=== PATIENT | female | born 1955 | race Caucasian/White ===

== ENCOUNTER 2018-05-08 19:00 | Outpatient (CLI) | payer OTHER | END 2018-05-08 23:59 | disposition home or self-care (01) | LOC: D.MAMMO 19:00 | PROVIDERS: ATTEND Nurse Practitioner Family | DX: Z12.31 Encounter for screening mammogram for malignant neoplasm of breast (principal) ==

== ENCOUNTER 2018-07-02 07:19 | Observation (INO) | payer MEDICAID ==
[2018-07-02] MEDS ORDERED: NORVASC5 MG PO (07:25)
[2018-07-02] MEDS ORDERED: INDERAL 40 MG T40 MG PO (07:25)
[2018-07-02] MEDS ORDERED: ZANAFLEX4 MG PO ×2 (07:27→11:55)
--- NOTE | 2018-07-02 07:40 | NUR ---
URINE SPECIMEN COLLECTED AND SENT TO LAB VIA TUBE SYSTEM
[2018-07-02 07:46] LABS: HEMATOCRIT 39.4 % (36.0-48.0); HEMOGLOBIN 13.3 g/dL (12-16); IMMATURE GRANULOCYTES 0.2 % (0-5); LYMPHOCYTES 44.9 % (15-50); MCH 29.3 pg (26.0-34.0); MCHC 33.8 g/dL (31.0-37.0); MCV 86.8 fL (80.0-100.0); MEAN PLATELET VOLUME 10.8 fL (7.4-10.4); MONOCYTES 8.6 % (2-11); NEUTROPHILS 42.3 % (40-80); PLATELET COUNT 220 10x3/uL (130-400); RBC 4.54 10x6/uL (4.00-5.40); WBC 5.7 10x3/uL (4.8-10.8)
[2018-07-02 08:10] LABS: ALBUMIN 3.5 g/dL (3.4-5.0); ALKALINE PHOSPHATASE 85 U/L (46-116); ALT (SGPT) 12 U/L (10-68); BILIRUBIN - TOTAL 0.31 mg/dL (0.2-1.3); CALC OSMOLALITY 282 mosm/kg (275-300); CARBON DIOXIDE 28.3 mmol/L (21.0-32.0); CHLORIDE - SERUM 102 mmol/L (98-107); CKMB 0.4 U/L (0.0-3.6); CREATINE KINASE 40 UL (21-215); GLUCOSE 120 mg/dL (74-106); PROTEIN - SERUM 7.2 g/dL (6.4-8.2); SODIUM 141 mmol/L (136-145); UREA NITROGEN 16 mg/dL (7-18); eGFR NON AFRICAN AMERICAN 59 mL/min (90-120)
[2018-07-02 08:12] LABS: COLOR YELLOW (YELLOW)
[2018-07-02 08:13] LABS: APPEARANCE CLEAR (CLEAR); BILIRUBIN NEGATIVE (NEGATIVE); GLUCOSE NEGATIVE (NEGATIVE); KETONE NEGATIVE (NEGATIVE); NITRITE NEGATIVE (NEGATIVE); PROTEIN NEGATIVE (NEGATIVE); UROBILINOGEN NORMAL (NORMAL)
[2018-07-02 08:16] LABS: TROPONIN-I < 0.017 ng/mL (0.000-0.060)
[2018-07-02 08:18] LABS: POTASSIUM - SERUM 2.6 mmol/L (3.5-5.1)
--- NOTE | 2018-07-02 08:18 | NUR ---
CRITICAL LAB RECEIVED FROM TREY: POTASSIUM 2.6. EDP DOWNEN NOTIFIED.
--- NOTE | 2018-07-02 08:22 | NUR ---
PATIENT RETURNED FROM RADIOLOGY
[2018-07-02 08:36] LABS: MAGNESIUM - SERUM 1.6 mg/dL (1.8-2.4); THYROID STIMULATING HORMONE 4.2 uIU/mL (0.36-3.74)
[2018-07-02 08:44] VITALS: BP 128/78
--- NOTE | 2018-07-02 10:18 | NUR ---
PATIENT C/O COLDNESS IN THE ARM FROM THE FLUIDS. GIVEN A WARM PACK TO THE AREA. THE SITE IS WNL WITHOUT REDNESS OR SWELLING.
[2018-07-02 11:11] VITALS: BP 115/59
--- NOTE | 2018-07-02 11:40 | NUR ---
PT ARRIVED TO ROOM 2215 FROM ER CL IN REACH PT ORENTATED TO ROOM
[2018-07-02] MEDS ORDERED: HYDROCHLOROTHIA25 MG PO (11:53)
[2018-07-02] MEDS ORDERED: BUTALB-APAP-CA1 EACH PO (11:58)
[2018-07-02 14:44] VITALS: BP 132/78; BMI 23.2
[2018-07-02 16:37] LABS: BASOPHILS 0.7 % (0-2); EOSINOPHILS 2.2 % (0-7); HEMATOCRIT 38.1 % (36.0-48.0); HEMOGLOBIN 12.8 g/dL (12-16); IMMATURE GRANULOCYTES 0.3 % (0-5); LYMPHOCYTES 35.9 % (15-50); MCH 29.4 pg (26.0-34.0); MCHC 33.6 g/dL (31.0-37.0); MCV 87.6 fL (80.0-100.0); MEAN PLATELET VOLUME 11.1 fL (7.4-10.4); MONOCYTES 8.4 % (2-11); NEUTROPHILS 52.5 % (40-80); PLATELET COUNT 205 10x3/uL (130-400); RBC 4.35 10x6/uL (4.00-5.40); RDW 14.1 % (11.5-14.5); WBC 6.7 10x3/uL (4.8-10.8)
[2018-07-02 16:54] LABS: ALBUMIN 3.1 g/dL (3.4-5.0); ANION GAP 13.1 mmol/L (8-16); BILIRUBIN - TOTAL 0.15 mg/dL (0.2-1.3); CALCIUM 8.3 mg/dL (8.5-10.1); CARBON DIOXIDE 29.2 mmol/L (21.0-32.0); PROTEIN - SERUM 6.3 g/dL (6.4-8.2)
[2018-07-02 16:56] LABS: MAGNESIUM - SERUM 2.1 mg/dL (1.8-2.4); POTASSIUM - SERUM 3.3 mmol/L (3.5-5.1)
[2018-07-02 18:09] VITALS: BP 103/50
--- NOTE | 2018-07-02 20:00 | NUR ---
ALERT AND ORIENTIATED SITTIGN UP IN BED NO APPARENT DISTRESS DENIES DIZZINESS AT THIS TIME, SEE SHIFT ASSESSMENT, CALL LIGHT IN REACH
[2018-07-02 21:05] VITALS: BP 109/64
--- NOTE | 2018-07-02 22:30 | NUR ---
REQUESTING HOME MEDS INSTRUCTED THEY WERE NOT REORDERED TODAY AND WITH DX OF DIZZINESS WILL REVALUATE IN AM BEFORE RESTARTING
[2018-07-03 01:21] VITALS: BP 135/77
[2018-07-03 04:44] LABS: BASOPHILS 0.5 % (0-2); HEMATOCRIT 36.7 % (36.0-48.0); IMMATURE GRANULOCYTES 0.2 % (0-5); LYMPHOCYTES 42.6 % (15-50); MCH 28.9 pg (26.0-34.0); MCHC 32.7 g/dL (31.0-37.0); MCV 88.4 fL (80.0-100.0); MEAN PLATELET VOLUME 10.8 fL (7.4-10.4); MONOCYTES 9.9 % (2-11); NEUTROPHILS 44.8 % (40-80); PLATELET COUNT 215 10x3/uL (130-400); RBC 4.15 10x6/uL (4.00-5.40); RDW 14.4 % (11.5-14.5); WBC 6.1 10x3/uL (4.8-10.8)
[2018-07-03 04:56] LABS: ALBUMIN 2.8 g/dL (3.4-5.0); ANION GAP 10.3 mmol/L (8-16); BILIRUBIN - TOTAL 0.11 mg/dL (0.2-1.3); CALCIUM 8.4 mg/dL (8.5-10.1); CARBON DIOXIDE 30.3 mmol/L (21.0-32.0); CREATININE - SERUM 0.9 mg/dL (0.6-1.3); POTASSIUM - SERUM 3.6 mmol/L (3.5-5.1); PROTEIN - SERUM 5.9 g/dL (6.4-8.2)
[2018-07-03 05:49] VITALS: BP 116/75
--- NOTE | 2018-07-03 07:20 | NUR ---
PT SITTING UP IN BED, ALERT AND ORIENTED. UP AD BRET. PT ON ELECTROLYTE PROTOCOL. IV TO RIGHT HAND, SL. SITE PATENT WITHOUT REDNESS OR SWELLING. NO C/O PAIN. NO S/S OF ACUTE DISTRESS NOTED. CALL LIGHT IN REACH. PT DENIES ANYTHING FURTHER AT THIS TIME. WILL CONTINUE TO MONITOR.
[2018-07-03 08:04] VITALS: BP 116/61
[2018-07-03 13:25] VITALS: BP 125/72
[2018-07-03 16:00] VITALS: BP 114/69
[2018-07-03] MEDS ORDERED: AMITRIPTYLINE H50 MG PO (16:17)
[2018-07-03] MEDS ORDERED: TRAZODONE HCL150 MG PO (16:18)
[2018-07-03 20:11] VITALS: BP 108/65
[2018-07-04 00:20] VITALS: BP 131/57
[2018-07-04 04:55] VITALS: BP 163/77
[2018-07-04 06:31] LABS: BASOPHILS 0.6 % (0-2); EOSINOPHILS 1.6 % (0-7); HEMOGLOBIN 11.9 g/dL (12-16); IMMATURE GRANULOCYTES 0.1 % (0-5); LYMPHOCYTES 44.8 % (15-50); MCH 28.7 pg (26.0-34.0); MCHC 32.2 g/dL (31.0-37.0); MCV 89.4 fL (80.0-100.0); MEAN PLATELET VOLUME 10.8 fL (7.4-10.4); MONOCYTES 10.3 % (2-11); NEUTROPHILS 42.6 % (40-80); PLATELET COUNT 229 10x3/uL (130-400); RBC 4.14 10x6/uL (4.00-5.40); RDW 14.4 % (11.5-14.5); WBC 6.9 10x3/uL (4.8-10.8)
[2018-07-04 06:45] LABS: ALBUMIN 3.3 g/dL (3.4-5.0); ALKALINE PHOSPHATASE 73 U/L (46-116); BILIRUBIN - TOTAL 0.15 mg/dL (0.2-1.3); CALC OSMOLALITY 289 mosm/kg (275-300); CALCIUM 8.8 mg/dL (8.5-10.1); CARBON DIOXIDE 31.3 mmol/L (21.0-32.0); CHLORIDE - SERUM 107 mmol/L (98-107); CREATININE - SERUM 0.7 mg/dL (0.6-1.3); GLUCOSE 92 mg/dL (74-106); MAGNESIUM - SERUM 1.8 mg/dL (1.8-2.4); POTASSIUM - SERUM 3.6 mmol/L (3.5-5.1); PROTEIN - SERUM 6.5 g/dL (6.4-8.2); SODIUM 145 mmol/L (136-145); UREA NITROGEN 14 mg/dL (7-18); eGFR NON AFRICAN AMERICAN 89 mL/min (90-120)
[2018-07-04 06:46] LABS: ALT (SGPT) 24 U/L (10-68)
--- NOTE | 2018-07-04 07:17 | NUR ---
TALKED WITH PT FOR 20 MIN THIS SHIFT SHE TOLD THIS STAFF THAT THE DOCTER DID NOT TALKE TO HER AND THE POWER PLANT OPERATOR APPRENTICE DID NOT LISEN TO HER AND DID NOT GIVE HER THE MEDICATION THAT SHE SHOULD HAVE AND TAKES AT HOME. WANTS TO TALKE WITH SOMEONE THAT CAN HELP HER AND WILL LISTEN TO HER. EDUCATED HER THAT A NOTE WOULD BE PLACED AND PASED ON IN REPORT FOR CASE MANAGMENT TO TALK WITH HER.
[2018-07-04 09:14] VITALS: BP 156/88
[2018-07-04] MEDS ORDERED: PROTONIX40 MG PO (09:55)
[2018-07-04] MEDS ORDERED: SINGULAIR10 MG PO (09:55)
[2018-07-04 10:50] VITALS: BMI 23.2
--- NOTE | 2018-07-04 14:15 | NUR ---
IV DC WITH CATH INTACT, DC INSTUCTIONS GIVEN PT VERBALIZES UNDERSTANDING, LEAVIGN VIA WHEELCHAIR VIA HOSPITAL STAFF IN STABLE CONDITON
--- NOTE | 2018-07-04 14:16 | MORECARE ---
CASE MANAGEMENT DISCHARGE SUMMARY PATIENT: DAVID MANCILLA UNIT: [id number] ADM DATE: 07/02/18 AGE: 63 : 54 SEX: F ROOM/BED: D.2215 AUTHOR: PAYTON JUSTIN PHYSICIAN: REFERRING PHYSICIAN: GERARDO PEREZ MD DATE OF SERVICE: 07/04/18 Discharge Plan Patient Name: DAVID MANCILLA Facility: [facility]:[place] : 1955 Planned Disposition: Home or Self Care Anticipated Discharge Date: Discharge Date: Expected LOS: Initial Reviewer: [email or web address] Initial Review Date: 07/02/2018 Generated: 07/04/18 3:16 pm DCPIA - Discharge Planning Initial Assessment Updated by [email or web address]: Summer Renee on 07/04/18 2:14 pm * Is the patient Alert and Oriented? Yes * How many steps to enter\exit or inside your home? * PCP RUCHI CHANEY * [facility] * Preadmission Environment Home with Family * ADLs Independent * Equipment None * List name and contact numbers for known caregivers / representatives who currently or will assist patient after discharge: SHWETA FAUST * Verbal permission to speak to the caregivers and representatives has been obtained from the patient. N/A * Community resources currently utilized None * Additional services required to return to the preadmission environment? Yes * Can the patient safely return to the preadmission environment? Yes * Has this patient been hospitalized within the prior 30 days at any hospital? No External Providers External Provider: [facility] Next Contact Date: Service Request Date: Service Type: Resolution: Reviewer: Comments: Patient Name: DAVID MANCILLA Page 81992 at 1416 All edits/amendments must be made on the electronic document DICTATION DATE: 07/04/181415 EDGER MACHINE SETTER: MALLORY 07/04/181415 RPT#: [id number] DC DATE: STATUS: ADM IN [facility] [address] [place] [address] END OF REPORT
--- NOTE | 2018-07-04 14:27 | MORECARE ---
CASE MANAGEMENT DISCHARGE SUMMARY PATIENT: DAVID MANCILLA UNIT: [id number] ADM DATE: 07/02/18 AGE: 63 : 53 SEX: F ROOM/BED: D.2215 AUTHOR: PAYTON JUSTIN PHYSICIAN: REFERRING PHYSICIAN: GERARDO PEREZ MD DATE OF SERVICE: 07/04/18 Discharge Plan Patient Name: DVAID MANCILLA Facility: [facility]:[place] : 1955 Planned Disposition: Home or Self Care Anticipated Discharge Date: Discharge Date: Expected LOS: Initial Reviewer: [email or web address] Initial Review Date: 07/02/2018 Generated: 07/04/18 3:26 pm Comments DCP- Discharge Planning Updated by [email or web address]: Summer Renee on 07/04/18 1:[address] Patient Name: DAVID MANCILLA Admission Status: ER Accout number: [id number] Admission Date: 07-02-2018 : 1955 Admission Diagnosis: Attending: GERARDO PEREZ Current LOS: 2 Anticipated DC Date: Planned Disposition: Home or Self Care [facility] Discharge Planning Comments: CM met with patient to complete initial dc planning assessment. CM educated patient on the CM role and verbal consent given by patient to complete assessment. Patient lives at home with her special needs adult son. At discharge patient plans to return home and feels this is a safe discharge. CM discussed availability of home health, rehab services, and medical equipment. She did not want home health, she wanted op pt at [facility]. I called and sent orders and paperwork to them and they will call the patient with an appointment. I explained the follow to the patient and gave her their number. Patient denied known discharge needs at this time. CM will continue to follow and will assist as needed with dc plans/needs. Garment Turner: Summer Renee DCPIA - Discharge Planning Initial Assessment Updated by [email or web address]: Summer Renee on 07/04/18 2:14 pm * Is the patient Alert and Oriented? Yes * How many steps to enter\exit or inside your home? * PCP RUCHI CHANEY * [facility] * Preadmission Environment Home with Family * ADLs Independent * Equipment None * List name and contact numbers for known caregivers / representatives who currently or will assist patient after discharge: SHWETA FAUST * Verbal permission to speak to the caregivers and representatives has been obtained from the patient. N/A * Community resources currently utilized None * Additional services required to return to the preadmission environment? Yes * Can the patient safely return to the preadmission environment? Yes * Has this patient been hospitalized within the prior 30 days at any hospital? No Last DP export: 07/04/18 1:16 p Patient Name: DAVID MANCILLA Page 75555 at 1427 All edits/amendments must be made on the electronic document DICTATION DATE: 07/04/181425 BLOOD DONOR RECRUITER SUPERVISOR: MALLORY 07/04/181425 RPT#: [id number] DC DATE: STATUS: ADM IN [facility] [address] [place] [address] END OF REPORT
--- NOTE | 2018-07-04 20:15 | NUR ---
OT NOTE:(OBSERVATION PATIENT) PT COMPLETED BED MOB MOD I. PT COMPLETED SIT TO STAND WITH SBA. PT COMPLETED BUE AROM EXS AT EOB WITH SPV. THANK YOU, NAVEEN ANTONIO
--- NOTE | 2018-07-05 14:19 | MORECARE ---
CASE MANAGEMENT DISCHARGE SUMMARY PATIENT: DAVID MANCILLA UNIT: [id number] ADM DATE: 07/02/18 AGE: 63 : 53 SEX: F ROOM/BED: D.2215 AUTHOR: NHAN,DOC PHYSICIAN: REFERRING PHYSICIAN: GERARDO PEREZ MD DATE OF SERVICE: 07/05/18 Discharge Plan Patient Name: DAVID MANCILLA Facility: [facility]:[place] : 1955 Planned Disposition: Home or Self Care Anticipated Discharge Date: Discharge Date: 07/04/2018 Expected LOS: 0 Initial Reviewer: [email or web address] Initial Review Date: 07/02/2018 Generated: 07/05/18 3:19 pm Comments DCP- Discharge Planning Updated by [email or web address]: Summer Renee on 07/04/18 1:[address] Patient Name: DAVID MANCILLA Admission Status: ER Accout number: [id number] Admission Date: 07-02-2018 : 1955 Admission Diagnosis: Attending: GERARDO PEREZ Current LOS: 2 Anticipated DC Date: Planned Disposition: Home or Self Care [facility] Discharge Planning Comments: CM met with patient to complete initial dc planning assessment. CM educated patient on the CM role and verbal consent given by patient to complete assessment. Patient lives at home with her special needs adult son. At discharge patient plans to return home and feels this is a safe discharge. CM discussed availability of home health, rehab services, and medical equipment. She did not want home health, she wanted op pt at [facility]. I called and sent orders and paperwork to them and they will call the patient with an appointment. I explained the follow to the patient and gave her their number. Patient denied known discharge needs at this time. CM will continue to follow and will assist as needed with dc plans/needs. Hat Measurer: Summer Renee DCPIA - Discharge Planning Initial Assessment Updated by [email or web address]: Summer Renee on 07/04/18 2:14 pm * Is the patient Alert and Oriented? Yes * How many steps to enter\exit or inside your home? * PCP RUCHI CHANEY * [facility] * Preadmission Environment Home with Family * ADLs Independent * Equipment None * List name and contact numbers for known caregivers / representatives who currently or will assist patient after discharge: SHWETA FAUST * Verbal permission to speak to the caregivers and representatives has been obtained from the patient. N/A * Community resources currently utilized None * Additional services required to return to the preadmission environment? Yes * Can the patient safely return to the preadmission environment? Yes * Has this patient been hospitalized within the prior 30 days at any hospital? No Last DP export: 07/04/18 1:27 p Patient Name: DAVID MANCILLA Page 38567 at 1419 All edits/amendments must be made on the electronic document DICTATION DATE: 07/05/181418 SERVICE MANAGER: MALLORY 07/05/181418 RPT#: [id number] DC DATE:07/04/18 STATUS: DIS IN [facility] [address] [place] [address] END OF REPORT
--- NOTE | 2018-07-11 09:00 | NUR ---
Butch with [facility] called and stated that they have tried multiple times without success and she did not show up for her appointment
== END 2018-07-04 15:01 | disposition home or self-care (01) ==
LOC: D.ER 07:19 → D.EDHOLD 08:54 → D.MS 08:54 → OBSVTIME 08:54 → D.MS 11:17
PROVIDERS: Family Medicine; ADMIT Internal Medicine Nephrology; ATTEND Internal Medicine Nephrology
DX: E87.6 Hypokalemia (principal); E83.42 Hypomagnesemia; R55 Syncope and collapse; E86.0 Dehydration; I10 Essential (primary) hypertension

== ENCOUNTER 2020-05-23 14:25 | Emergency (ER) | payer MEDICARE, OTHER ==
[~2020-05-23] VITALS: Ht 149.9 cm; Wt 65.9 kg
[~2020-05-23 14:25] MED LIST: AMITRIPTYLINE H50 MG PO; BUTALB-APAP-CA1 EACH PO; HYDROCHLOROTHIA25 MG PO; INDERAL 40 MG T40 MG PO; NORVASC5 MG PO; PROTONIX40 MG PO; SINGULAIR10 MG PO; TRAZODONE HCL150 MG PO; ZANAFLEX4 MG PO
[2020-05-23 14:28] VITALS: BP 169/84; Ht 149.9 cm; Wt 65.9 kg
[2020-05-23] MEDS ORDERED: KLONOPIN1 MG PO (14:33)
[2020-05-23] MEDS ORDERED: BACLOFEN10 MG PO (17:42)
[2020-05-23] MEDS ORDERED: NAPROSYN500 MG PO (17:42)
== END 2020-05-23 18:02 | disposition home or self-care (01) ==
LOC: D.ER 14:25
DX: S16.1XXA Strain of muscle, fascia and tendon at neck level, initial encounter (principal); S80.00XA Contusion of unspecified knee, initial encounter; S39.012A Strain of muscle, fascia and tendon of lower back, initial encounter; S29.012A Strain of muscle and tendon of back wall of thorax, initial encounter; E11.9 Type 2 diabetes mellitus without complications; I10 Essential (primary) hypertension; V89.2XXA Person injured in unspecified motor-vehicle accident, traffic, initial encounter; Y93.9 Activity, unspecified; Y92.9 Unspecified place or not applicable